=== PATIENT | female | born 1965 | race Caucasian/White ===

== ENCOUNTER → 2018-09-17 | Day surgery (SDC) | payer OTHER ==
[~2018-09-17] MED LIST: Lactated Ringers 1,000 ML IV SCH; Propofol 200 MG/20 ML SDV IV ONE
--- NOTE | 2018-09-17 11:49 | OR ---
DATE OF OPERATION: 09/17/2018 PREOPERATIVE DIAGNOSIS: SCREENING COLONOSCOPY. POSTOPERATIVE DIAGNOSIS: SCREENING COLONOSCOPY. SURGEON: Smi Cope MD PROCEDURE: FULL-LENGTH COLONOSCOPY. ANESTHESIA: REHABILITATION COORDINATOR. COMPLICATIONS: None. SPECIMEN: None. FINDINGS: 1. Full-length colonoscopy. 2. Minimal sigmoid diverticulosis. 3. No polyps or signs of malignancy. RECOMMENDATIONS: Followup colonoscopy every 10 years. INDICATIONS: The patient was seen by her primary care provider and sent for a screening colonoscopy due to her DESCRIPTION OF PROCEDURE: The patient was prepped and draped, placed in the left lateral decubitus position. A lubricated Olympus colonoscope was inserted and easily advanced to the cecum. Direct visualization of the ileocecal valve and appendiceal orifice was accomplished. The bowel prep was fine. Upon withdrawal of the scope, throughout the entire length of the colon, I could find no signs of any polyps, mass, ulceration, or bleeding sites. No vascular abnormalities or signs of colitis. She had a couple of diverticula in the mid to distal sigmoid, very minimal in severity. The rectal vault was benign. Retroflexion showed no anal lesions. Air was suctioned, scope removed without complication. JOSE/VICTORINO /[id number]
== END ==
LOC: CC.SDS 08:19
PROVIDERS: ATTEND Family Medicine
DX: Z12.11 Encounter for screening for malignant neoplasm of colon (principal); K57.30 Diverticulosis of large intestine without perforation or abscess without bleeding; I10 Essential (primary) hypertension; K21.9 Gastro-esophageal reflux disease without esophagitis; E78.5 Hyperlipidemia, unspecified; G44.209 Tension-type headache, unspecified, not intractable; Z79.899 Other long term (current) drug therapy; Z88.1 Allergy status to other antibiotic agents
CPT/HCPCS: 45378; J2704; J7120

== ENCOUNTER 2021-12-20 13:18 | Emergency (ER) | payer BC ==
[2021-12-20] MEDS ORDERED: Sodium Chloride 0.9% 10 ML Syringe FLUSH PRN (13:30)
[2021-12-20] MEDS ORDERED: Aspirin 81 MG Tab.Chew PO ONE (13:30)
[2021-12-20 13:52] LABS: CHLORIDE,CL 105 mEq/L (98-106); SODIUM,NA 141 mEq/L (136-145)
[2021-12-20 13:56] LABS: ESTIMATED GFR > 60 mL/min (>=60)
[2021-12-20] MEDS ORDERED: Heparin Sodium 5,000 Units/ML Vial IVPUSH ONE (15:13)
[2021-12-20] MEDS ORDERED: Heparin Sodium/0.45% NaCl 500 ML IV SCH (15:15)
== END 2021-12-20 16:30 ==
LOC: CC.ED 13:18
DX: R07.89 Other chest pain (principal); I26.99 Other pulmonary embolism without acute cor pulmonale; R06.02 Shortness of breath; Z79.899 Other long term (current) drug therapy; Z88.2 Allergy status to sulfonamides
CPT/HCPCS: 36415; 71045; 71275; 80053; 83735; 84484; 85025; 85379; 85610; 85730; 86140; 93005; 96365; 99284; 99285-25; A9270-GY; J1644